=== PATIENT | female | born 1975 | race Caucasian/White ===

== ENCOUNTER 2017-10-16 14:53 | Emergency (ER) | payer MEDICAID ==
[~2017-10-16] VITALS: Ht 165.1 cm; Wt 73.9 kg
[2017-10-16 15:14] VITALS: Ht 165.1 cm; Wt 73.9 kg
[2017-10-16 16:02] VITALS: BP 120/79
== END 2017-10-16 16:02 | disposition home or self-care (01) ==
LOC: ED 14:53
DX: J02.9 Acute pharyngitis, unspecified (principal); H92.03 Otalgia, bilateral